=== PATIENT | male | born 1970 | race Two or more races ===

== ENCOUNTER 2024-01-04 22:19 | Emergency (ER) | payer OTHER ==
[~2024-01-04] VITALS: Ht 170.2 cm; Wt 70.8 kg
[2024-01-04 22:45] VITALS: BP 148/71; PULSE 90; RESP 17; O2SAT 98
== END 2024-01-05 04:12 | disposition left against medical advice (07) ==
LOC: ER 22:19
DX: T82.49XA Other complication of vascular dialysis catheter, initial encounter (principal); I12.0 Hypertensive chronic kidney disease with stage 5 chronic kidney disease or end stage renal disease; N18.6 End stage renal disease; Z99.2 Dependence on renal dialysis
CPT/HCPCS: 71046